=== PATIENT | female | born 1965 | race Asian ===

== ENCOUNTER 2021-02-22 11:26 | Day surgery (SDC) | payer BC ==
[2021-02-18 10:17] VITALS: BMI 35.4
[2021-02-22] MEDS ORDERED: LIDOCAINE HCL/PF 2% SDV 5ML VIAL ONE (12:23)
[2021-02-22] MEDS ORDERED: PROPOFOL 20 ML ONE ×5 (12:24)
[2021-02-22 13:34] VITALS: BP 109/71; PULSE 69; TEMP 98
== END 2021-02-22 13:25 | disposition home or self-care (01) ==
LOC: FASU-ENDO 11:26
PROVIDERS: ATTEND Internal Medicine Gastroenterology
PROC: 0DBL8ZX Excision of Transverse Colon, Via Natural or Artificial Opening Endoscopic, Diagnostic (ICD-10-PCS; principal; 2021-02-22 12:09)
DX: Z12.11 Encounter for screening for malignant neoplasm of colon (principal); D12.3 Benign neoplasm of transverse colon; K64.0 First degree hemorrhoids; K57.30 Diverticulosis of large intestine without perforation or abscess without bleeding
CPT/HCPCS: 82962; 88305-TC